=== PATIENT | male | born 2000 | race Two or more races ===

== ENCOUNTER 2022-11-14 21:00 | Emergency (ER) | payer OTHER ==
[~2022-11-14] VITALS: Ht 175.3 cm; Wt 99.8 kg
== END 2022-11-14 22:15 | disposition home or self-care (01) ==
LOC: ER 21:00
DX: T78.40XA Allergy, unspecified, initial encounter (principal); X58.XXXA Exposure to other specified factors, initial encounter; E11.9 Type 2 diabetes mellitus without complications